=== PATIENT | male | born 1955 | race American Indian/Alaskan Native ===

== ENCOUNTER 2022-03-15 12:00 | Emergency (ER) | payer MEDICARE ==
--- NOTE | 2022-03-15 12:19 | Emergency Department Report ---
ED Lower Extremity HPI - General Chief Complaint: Extremity Problem,Nontraumatic Stated Complaint: R KNEE PAIN Time Seen by Provider: 03/15/22 12:18 Source: patient, EMS Mode of arrival: Stretcher Limitations: No Limitations - Related Data Allergies Allergy/AdvReac Type Severity Reaction Status Date / Time No Known Allergies Allergy Verified 03/15/22 12:03 ED Review of Systems ROS: Stated complaint: R KNEE PAIN Other details as noted in HPI Comment: All other systems reviewed and negative ED Past Medical Hx - Past Medical History Previous Medical History?: Yes Hx Hypertension: Yes Hx Diabetes: Yes - Surgical History Past Surgical History?: Yes - Family History Family history: no significant - Social History Smoking Status: Former Smoker Substance Use Type: None ED Physical Exam - General Limitations: No Limitations General appearance: alert, in no apparent distress - Head Head exam: Present: atraumatic, normocephalic - Eye Eye exam: Present: normal appearance - ENT ENT exam: Present: mucous membranes moist - Neck Neck exam: Present: normal inspection - Respiratory Respiratory exam: Present: normal lung sounds bilaterally. Absent: respiratory distress - Cardiovascular Cardiovascular Exam: Present: regular rate, normal rhythm. Absent: systolic murmur, diastolic murmur, rubs, gallop - GI/Abdominal GI/Abdominal exam: Present: soft, normal bowel sounds - Rectal Rectal exam: Present: deferred - Extremities Exam Extremities exam: Present: normal inspection - Expanded Lower Extremity Exam Right Knee exam: Present: swelling - Back Exam Back exam: Present: normal inspection - Neurological Exam Neurological exam: Present: alert, oriented X3 - Psychiatric Psychiatric exam: Present: normal affect, normal mood - Skin Skin exam: Present: warm, dry, intact, normal color. Absent: rash ED Course Vital Signs 03/15/22 03/15/22 12:00 16:32 Temperature 100.7 F H 99.9 F H Pulse Rate 105 H 88 Respiratory 14 19 Rate Blood Pressure 148/90 134/78 [Left] O2 Sat by Pulse 96 97 Oximetry ED Lower Extremity MDM - Lab Data Result diagrams: 03/15/22 12:23 03/15/22 12:23 - Radiology Data Radiology results: report reviewed, image reviewed - Medical Decision Making Labs 03/15/22 03/15/22 12:23 12:23 WBC 11.7 H RBC 4.77 Hgb 13.1 Hct 40.9 MCV 86 MCH 28 MCHC 32 RDW 16.8 H Plt Count 513 H Sodium 133 L Potassium 4.0 Chloride 94.8 L Carbon Dioxide 25 Anion Gap 17 BUN 11 Creatinine 0.8 Estimated GFR > 60 BUN/Creatinine Ratio 14 Glucose 150 H Calcium 9.8 Total Bilirubin 0.50 AST 69 H ALT 87 H Alkaline Phosphatase 211 H Total Protein 8.4 H Albumin 3.9 Albumin/Globulin Ratio 0.9 Vital Signs 03/15/22 03/15/22 12:00 16:32 Temperature 100.7 F H 99.9 F H Pulse Rate 105 H 88 Respiratory 14 19 Rate Blood Pressure 148/90 134/78 [Left] O2 Sat by Pulse 96 97 Oximetry Critical care attestation.: If time is entered above; I have spent that time in minutes in the direct care of this critically ill patient, excluding procedure time. ED Disposition Clinical Impression: Knee pain Disposition: 01 HOME / SELF CARE / HOMELESS Is pt being admited?: No Does the pt Need Aspirin: No Condition: Stable Time of Disposition: 16:47
--- NOTE | 2022-03-15 13:19 | XRay Report ---
Right knee-3 views INDICATION: PAIN. COMPARISON: None available. IMPRESSION: No acute osseous abnormality. Normal alignment. Mild tricompartmental DJD. Soft tissue s are unremarkable. Signer Name: Vahe Quintana MD Signed: 03/15/2022 1:15 PM Workstation Name: [id number]
[2022-03-15 13:25] LABS: Hematocrit 40.9 % (35.5-45.6); Hemoglobin 13.1 gm/dl (11.8-15.2); Mean Corpuscular HGB Conc 32 % (32-34); Mean Corpuscular Volume 86 fl (84-94); Platelet Count 513 K/mm3 (140-440); Red Blood Count 4.77 M/mm3 (3.65-5.03); Red Cell Distribution Width 16.8 % (13.2-15.2)
--- NOTE | 2022-03-15 13:28 | XRay Report ---
RIGHT FINGER(S) 3 VIEW(S) INDICATION / CLINICAL INFORMATION: PAIN COMPARISON: None available. FINDINGS: BONES / JOINT(S): No acute fracture or subluxation. No significant arthritis. SOFT TISSUES: No significant abnormality. ADDITIONAL FINDINGS: None. IMPRESSION: 1. No acute findings. Signer Name: Gumaro Rico MD Signed: 03/15/2022 1:23 PM Workstation Name: [id number]
[2022-03-15] MEDS ORDERED: IBUPROFEN 800 MG TAB PO ONE (15:09)
[2022-03-15 16:07] LABS: Alanine Aminotransferase 87 units/L (7-56); Albumin 3.9 g/dL (3.9-5); BUN/Creatinine Ratio 14; Blood Urea Nitrogen 11 mg/dL (9-20); Calcium 9.8 mg/dL (8.4-10.2); Hemolysis Index 12
[2022-03-15 17:06] VITALS: BP 143/78
== END 2022-03-15 12:30 | disposition home or self-care (01) ==
LOC: ED 12:00
DX: M25.561 Pain in right knee (principal); I10 Essential (primary) hypertension; E11.9 Type 2 diabetes mellitus without complications
CPT/HCPCS: 36415; 80053; 85027; 99284